=== PATIENT | male | born 2000 ===

== ENCOUNTER 2023-02-02 18:50 | Emergency (ER) | payer BC ==
[~2023-02-02] VITALS: Ht 177.8 cm; Wt 68.2 kg
[2023-02-02 18:58] VITALS: TEMP 98.3
[2023-02-02 19:30] VITALS: BP 120/76; PULSE 73
== END 2023-02-02 19:30 | disposition home or self-care (01) ==
LOC: COL.ER 18:50
DX: S61.215A Laceration without foreign body of left ring finger without damage to nail, initial encounter (principal); Z23 Encounter for immunization; Z28.310 Unvaccinated for COVID-19; W26.8XXA Contact with other sharp object(s), not elsewhere classified, initial encounter